=== PATIENT | male | born 1945 | race Caucasian/White ===

== ENCOUNTER 2023-05-23 13:45 | Emergency (ER) | payer MEDICARE ==
[2023-05-23] MEDS: Sodium Chloride 0.9% 1,000 ML IV SCH ×2 (14:36→20:36)
[2023-05-23 14:39] LABS: BASOPHILS ABSOLUTE AUTO 0.04 K/uL (0.02-0.10); BASOPHILS PERCENT AUTO 0.6 % (0.0-0.5); EOSINOPHILS ABSOLUTE AUTO 0.09 K/uL (0.04-0.40); EOSINOPHILS PERCENT AUTO 1.3 % (1.0-5.0); HEMATOCRIT 39.8 % (40.0-54.0); HEMOGLOBIN 13.5 g/dL (13.0-18.0); LYMPHOCYTES ABSOLUTE AUTO 0.73 K/uL (1.50-4.00); LYMPHOCYTES PERCENT AUTO 10.7 % (20.0-40.0); MEAN CORPUSCULAR HEMOGLOBIN 29.8 pg (27.0-32.0); MEAN CORPUSCULAR HGB CONC 33.9 g/dL (31.0-35.0); MEAN CORPUSCULAR VOLUME 88 fL (76-96); MEAN PLATELET VOLUME 9.1 fL (6.0-10.0); MONOCYTES ABSOLUTE AUTO 0.77 K/uL (0.20-0.80); MONOCYTES PERCENT AUTO 11.2 % (3.0-10.0); NEUTROPHILS ABSOLUTE AUTO 5.22 K/uL (2.00-7.50); NEUTROPHILS PERCENT AUTO 76.2 % (45.0-70.0); PLATELET COUNT,PLT 226 K/uL (150-400); RED BLOOD CELL COUNT 4.53 M/uL (4.50-6.50); WHITE BLOOD CELL COUNT,WBC 6.9 K/uL (4.0-11.0)
[2023-05-23] MEDS ORDERED: Ondansetron 4 MG/2 ML SDV IVPUSH ONE (14:50)
[2023-05-23] MEDS ORDERED: Ondansetron 4 MG/2 ML SDV ONE (14:58)
[2023-05-23 15:05] LABS: MAGNESIUM 2.2 mg/dL (1.8-2.4); PHOSPHORUS 3.8 mg/dL (2.5-4.9)
[2023-05-23 15:11] LABS: A/G RATIO 0.9 (0.8-2.0); ALBUMIN 3.3 g/dL (3.4-5.0); ANION GAP 17.7 mmol/L (5.0-15.0); BILIRUBIN TOTAL 0.9 mg/dL (0.0-1.0); BUN/CREATININE RATIO 16.4 (6-25); CALCIUM 11.4 mg/dL (8.5-10.1); CARBON DIOXIDE,CO2 25.6 mmol/L (21.0-32.0); CREATININE 2.25 mg/dL (0.70-1.30); EST CRCL DRUG DOSING (CG) 26.88 mL/min; POTASSIUM,K 4.3 mmol/L (3.5-5.1); PROTEIN TOTAL,TP 7.2 g/dL (6.4-8.2); TROPONIN I HIGH SENSITIVITY 15.8 pg/ml (<=60.4)
[2023-05-23] MEDS ORDERED: Dextrose 5%-0.45% NaCl 500 ML IV SCH ×2 (15:45→15:53)
[2023-05-23] MEDS ORDERED: Dextrose 5%-0.45% NaCl 1,000 ML IV SCH (15:51)
[2023-05-23 15:58] LABS: BASE EXCESS VENOUS -1.8 mm/L (-2-3); BICARBONATE,VENOUS 23.8 mmol/L (23.0-28.0); PCO2 VENOUS 43.2 mm/Hg (41-51); PH,VENOUS 7.35 (7.31-7.41)
[2023-05-23 16:13] LABS: APPEARANCE,URINE SLIGHTLY CLOUDY (CLEAR); BILIRUBIN,URINE MODERATE (NEGATIVE); COLOR,URINE YELLOW; GLUCOSE,URINE NEGATIVE (NEGATIVE); KETONES,URINE 15 mg/dL (NEGATIVE); LEUKOCYTE ESTERASE,URINE NEGATIVE (NEGATIVE); NITRITE,URINE NEGATIVE (NEGATIVE); OCCULT BLOOD,URINE TRACE-LYSED (NEGATIVE); PROTEIN,URINE 30 mg/dL (NEGATIVE)
[2023-05-23 16:22] LABS: BACTERIA,URINE RARE /HPF; FINE GRANULAR CASTS,URINE OCCASIONAL /HPF; HYALINE CASTS,URINE FEW /HPF; MUCUS,URINE OCCASIONAL /HPF; RBC,URINE 0-5 /HPF; SQUAMOUS EPITHELIAL CELLS,UR OCCASIONAL /HPF; WBC,URINE NOT SEEN /HPF
[2023-05-23] MEDS ORDERED: Lactated Ringers 500 ML IV ONE (16:40)
[2023-05-23 17:50] LABS: ANION GAP 9.1 mmol/L (5.0-15.0); BUN/CREATININE RATIO 15.7 (6-25); CALCIUM 10.8 mg/dL (8.5-10.1); CARBON DIOXIDE,CO2 31.1 mmol/L (21.0-32.0); CREATININE 2.16 mg/dL (0.70-1.30); POTASSIUM,K 5.2 mmol/L (3.5-5.1)
[2023-05-23] MEDS ORDERED: Lactated Ringers 1,000 ML IV ONE (19:00)
== END 2023-05-23 21:50 ==
LOC: LB.ED 13:45
DX: N17.9 Acute kidney failure, unspecified (principal); Z20.822 Contact with and (suspected) exposure to COVID-19
CPT/HCPCS: 36415; 71045; 74176; 80048; 80053; 81001; 82009; 82803; 82947; 83605; 83690; 83735; 84100; 84484; 85025; 87804; 87804-59; 93005; 93010; 96361; 96374; 99285; 99285-25; J2405; J7030; J7120; U0002